=== PATIENT | female | born 2005 | race Caucasian/White ===

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

== ENCOUNTER 2024-03-06 08:24 | Outpatient (CLI) | payer BC, SELFPAY | END 2024-03-06 08:25 | disposition home or self-care (01) | LOC: ANHGOSHLAB 08:26 | PROVIDERS: PCP Family Medicine; Visit Provider Student in an Organized Health Care Education/Training Program | DX: N76.5 Ulceration of vagina (principal) | CPT/HCPCS: 36415; 86695; 86696 ==